=== PATIENT | female | born 2000 | race Two or more races ===

== ENCOUNTER 2024-06-29 14:51 | Emergency (ER) | payer MEDICAID, SELFPAY ==
[2024-06-29 15:07] VITALS: BP 132/81; PULSE 77; RESP 19; TEMP 37.3; O2SAT 98; BMI 47.8
--- NOTE | 2024-06-29 15:20 | XR_ITS ---
Examination: Pelvic ultrasound, transabdominal, complete Technique: Transabdominal ultrasound of the pelvis performed using grayscale imaging Date and time of exam: June 29, 2024 1621 hrs. Indications: Pelvic pain and vaginal bleeding beginning 2 months ago Findings: Uterus 7.9 x 3.2 x 4.3 cm anteverted Endometrial stripe 1.3 cm Right ovary 3.4 x 2.1 x 2.7 cm arterial flow Left ovary 2.9 x 2.5 x 3.4 cm arterial flow Impression: Negative examination
--- NOTE | 2024-06-29 15:20 | PD.EDRME ---
Rapid Medical Screening Exam RME Arrival date/time: 06/29/24 14:51 Chief Complaint: Vaginal Bleeding Time Seen by Provider: 06/29/24 14:56 Vital signs: Vital Signs Temperature 99.1 F 06/29/24 15:07 Pulse Rate 77 06/29/24 15:07 Respiratory Rate 19 06/29/24 15:07 Blood Pressure 132/81 H 06/29/24 15:07 Pulse Oximetry (%) 98 06/29/24 15:07 Oxygen Delivery Method Room Air 06/29/24 15:07 RME Narrative: Vaginal bleeding x 2 months
[2024-06-29 15:47] LABS: Basophils # (Auto) 0.1 Thou/mm3 (0.0-0.2); Basophils % (Auto) 1 % (0-2.5); Eosinophils # (Auto) 0.2 Thou/mm3 (0.0-0.5); Eosinophils % (Auto) 2 % (0-10); Hematocrit 39.4 % (36.0-46.0); Hemoglobin 13.6 g/dL (12.0-16.0); Immature Granulocytes % (Auto) 1 % (0-0); Immature Granulocytes Auto 0.04 Thou/mm3 (0.00-0.00); Lymphocytes # (Auto) 3.1 Thou/mm3 (1.0-4.8); Lymphocytes % (Auto) 38 % (10-50); Mean Corpuscular HGB Conc 34.5 g/dl (31.0-37.0); Mean Corpuscular Volume 87 fL (80-100); Monocytes # (Auto) 0.5 Thou/mm3 (0.0-0.8); Monocytes % (Auto) 6 % (0-12); Neutrophils # (Auto) 4.3 Thou/mm3 (1.8-7.7); Neutrophils % (Auto) 53 % (37-80); Nucleated Red Blood Cell % 0 /100 WBC (0); Platelet Count 282 Thou/mm3 (140-440); RDW Standard Deviation 39.5 fL (36.4-46.3); Red Blood Count 4.53 Miln/mm3 (4.00-5.20); White Blood Count 8.2 Thou/mm3 (3.6-11.0)
[2024-06-29 16:05] LABS: Alanine Aminotransferase 74 U/L (10-49); Albumin, Serum 5.1 gm/dL (3.5-5.0); Albumin/Globulin Ratio 1.8 (1.2-2.2); Alkaline Phosphatase 114 U/L (46-116); Anion Gap 5 (7-16); Aspartate Amino Transferase 40 U/L (0-34); BUN/Creatinine Ratio 18 Ratio (12-20); Bilirubin,Total 0.4 mg/dL (0.3-1.2); Blood Urea Nitrogen 14 mg/dL (9-23); Calcium 9.6 mg/dL (8.3-10.6); Calcium (Corrected) 9.6 mg/dL (8.5-10.1); Chloride 105 mMol/L (98-107); Creatinine (Component) 0.8 mg/dL (0.6-1.3); Estimated Creatinine Clearance 113.1 mL/min (>60); Globulin 2.8 gm/dL (2.3-3.5); Glucose 96 mg/dL (74-106); Osmolality,Calculated 274 (275-295); Potassium 3.7 mMol/L (3.4-5.1); Sodium 137 mMol/L (136-145); Total Protein 7.9 gm/dL (5.7-8.2); eGFR > 60 See Note
[2024-06-29 16:09] LABS: HCG,Qualitative Serum Negative
[2024-06-29 16:49] LABS: Collection Type, Urine Clean Catch
[2024-06-29 17:20] LABS: Bacteria,Urine 1+; Bilirubin,Urine Negative (Negative); Blood,Urine 3+ (Negative); Glucose, Urine Negative (Negative); Ketones,Urine Negative (Negative); Leukocyte Esterase,Urine Negative (Negative); Nitrite,Urine Negative (Negative); PH,Urine 6.5 (5.0-7.0); Protein,Urine Trace (Neg - Trace); RBC,Urine 1803 /hpf (0-3); Specific Gravity,Urine 1.019 (1.001-1.035); Squamous Epithelial Cell,Urine 5 /hpf (0-5); Urobilinogen,Urine Negative mg/dL (0.0-1.0); WBC,Urine 2 /hpf (0-5)
[2024-06-29 17:23] LABS: Clarity,Urine Cloudy (Clear/Hazy); Color,Urine Lt Yellow (Lt Yel-Yel)
--- NOTE | 2024-06-29 19:28 | EDNOTE_ITS ---
<Statement entered by Dena Mcmahon MD - 06/30/24 19:38> As co-signing physician, I was present and available for consult prn. I concur with the plan and care as documented by the midlevel provider. ED OB Contraction Preg RMI/HPI General Chief complaint: Vaginal Bleeding Stated complaint: vaginal bleeding x 2 months Time Seen by Provider: 06/29/24 14:56 Arrival date/time: 06/29/24 14:51 RME / HPI RME / HPI Narrative: 23-year-old female patient came in for evaluation regarding vaginal bleeding. Patient's been having vaginal bleeding, for the last 2 months, according to her was heavy, changing at least 3-4 pads per day. Patient denies any dizziness denies any other complaints. Patient was seen by her PCP and awaiting to be referred to [facility]. Patient never been before. Denies any dysuria denies any abdominal pain denies any pelvic pain Related Data Previous Rx's ?Medication ?Instructions ?Recorded acetaminophen 300 mg-codeine 30 mg 1 tab PO Q6H PRN pain #20 tabs 04/17/18 tablet (Tylenol-Codeine #3) penicillin V potassium 500 mg 500 mg PO QID #30 tabs 04/17/18 tablet acetaminophen 500 mg tablet 500 mg PO Q6H PRN pain #20 tabs 05/24/19 hydrocodone 5 mg-acetaminophen 325 1 tab PO Q6H PRN pain #20 tabs 05/24/19 mg tablet ([place]) ibuprofen 600 mg tablet 600 mg PO Q6H deny #20 tabs 05/24/19 medroxyprogesterone 10 mg tablet 10 mg PO QDAY #10 tabs 06/29/24 (Provera) Allergies Allergy/AdvReac Type Severity Reaction Status Date / Time No Known Allergies Allergy Verified 06/29/24 14:51 Review of Systems Review of Systems Narrative Review of Systems: Review of system reviewed and within normal limits except mentioned in HPI ED Exam Narrative Physical exam: VITAL SIGNS: Reviewed. GENERAL APPEARANCE: Alert and interactive, follows commands, no acute distress, HEAD AND FACE: Non-traumatic. ENT: PERRL, pink conjunctivitis, eyelid no trauma, Mucous membrane moist. NECK: Supple, nontender, no nuchal rigidity. CHEST: No tenderness, no crepitus, no paradoxical movement, no retractions. LUNGS: Clear, well ventilated, symmetric, no rales, no wheezing, no ronchi, no stridor, good breath sounds bilaterally. HEART: Regular rate, regular rhythm, no murmur, no gallops. ABDOMEN: Soft, positive bowel sounds, nondistended, no guarding, nontender, no rebound, no masses, RECTAL: Deferred. GENITAL: Deferred. NEUROLOGICAL: Gross motor function intact sensory function intact, Appropriate for age. MUSCULOSKELETAL: low back nontender, full range of motion. EXTREMITIES: Nontender, full range of motion. SKIN: Color pink, dry, no rash, no lacerations, no abrasions, no contusions. LYMPHATICS: Deferred. Course Quality Measures none Orders Category Date Time Status US pelvic complete Stat Exams 06/29/24 15:20 Completed CBC Stat Lab 06/29/24 15:33 Completed CMP [Comprehensive Metabolic Panel] Stat Lab 06/29/24 15:33 Completed HCG,Qualitative Serum Stat Lab 06/29/24 15:33 Completed UA [Urinalysis] Stat Lab 06/29/24 16:45 Completed Vital Signs Vital signs: Vital Signs Temperature 99.1 F 06/29/24 15:07 Pulse Rate 77 06/29/24 15:07 Respiratory Rate 19 06/29/24 15:07 Blood Pressure 132/81 H 06/29/24 15:07 Pulse Oximetry (%) 98 06/29/24 15:07 Oxygen Delivery Method Room Air 06/29/24 15:07 Vaginal Bleeding MDM Narrative MDM Narrative: Patient's workup all came back unremarkable. Patient is not . There is no sign of anemia also noted. Patient was sent home on Provera. Patient data External records reviewed:: None Clinical information provided by:: patient Social determinants that could affect healthcare access:: none Patient has the following chronic illnesses:: None How is presenting disease/condition affected by chronic disease/condition?: no chronic disease Evaluation data The following diagnostics were reviewed and interpreted by me:: lab results Lab and/or radiology exams considered but not ordered:: None Interpretation Summary: Patient's workup today all came back normal patient is there is no sign of anemia on the CBC. Ultrasound of the pelvis showed no acute pathology Medications / Prescriptions Medications or Prescriptions considered but not ordered:: None Medication administrations:: None Consultations Consultation(s) initiated? (list below): No Diagnosis Vaginal Bleeding Differential Diagnosis: threatened , dysfunctional uterine bleeding and vaginal bleeding Most likely diagnosis given after review of the tests above:: Menometrorrhagia, dysfunctional uterine bleeding Admission Indicated Admission indicated?: not indicated Admission Request Was there a request for admission?: No Disposition Plan Disposition Plan: Discharge Discharge Attestation Discharge Attestation: The patient and all family members were given an opportunity to ask questions and understood the discharge instructions. Discharge instructions specifically effects, indications for sooner follow up or return to the emergency department, and the expected course of current diagnosis. Patient condition: Stable Discharge Plan Plan Patient Disposition: HOME (Self Care) Disposition Comment: Stable Prescriptions/Referrals Prescriptions/Med Rec: New medroxyprogesterone [Provera] 10 mg tablet 10 mg PO QDAY Qty: 10 0RF No Action penicillin V potassium 500 mg tablet 500 mg PO QID Qty: 30 0RF acetaminophen-codeine [Tylenol-Codeine #3] 300-30 mg tablet 1 tab PO Q6H PRN (Reason: pain) Qty: 20 0RF hydrocodone-acetaminophen [[place]] 5-325 mg tablet 1 tab PO Q6H MDD 1 tab every 6 hrs PRN (Reason: pain) Qty: 20 0RF ibuprofen 600 mg tablet 600 mg PO Q6H Qty: 20 0RF acetaminophen 500 mg tablet 500 mg PO Q6H PRN (Reason: pain) Qty: 20 0RF Referrals: Rivka Galan CNM [Primary Care Provider] - In 1 week Problem List Clinical Impression: Dysfunctional uterine bleeding, Menometrorrhagia Patient/Caregiver Discharge Instructions Discharge Activity: activity as tolerated Education Materials: ED Heavy Menstrual Bleeding Additional Instructions: Thank you for the opportunity for serving you today. You are stable for discharged . You are advised to: Follow-up with your PCP in 1 to 2 days Return to ED for worsening of symptoms Increase oral fluids Take medication as prescribed Print Language: Palauan Stand Alone Forms: Annette Award Info., Patient Portal Info Letter PA/TG Supervising Physician DOMENICO/TG Supervising Physician: MD Lisandro
== END 2024-06-29 19:31 | disposition home or self-care (01) ==
PROVIDERS: Physician Assistant; Emergency Provider Emergency Medicine; PCP Advanced Practice Midwife
DX: N93.8 Other specified abnormal uterine and vaginal bleeding (principal); N92.1 Excessive and frequent menstruation with irregular cycle
CPT/HCPCS: 36415; 76856; 80053; 81001; 84703; 85025; 99284

== ENCOUNTER 2024-11-17 08:24 | Inpatient (IN) | payer MEDICAID, SELFPAY ==
[2024-11-17] VITALS (10 sets, daily range): BP systolic 108–141; BP diastolic 58–86; PULSE 70–98; RESP 18–20; TEMP 36.8–37.8; O2SAT 94–100; BMI 48.0; BMI 50.1; BMI 48.7
--- NOTE | 2024-11-17 08:40 | PD.EDRME ---
Rapid Medical Screening Exam RME Arrival date/time: 11/17/24 08:24 This is a 24-year-old female that comes in with complaints of lower abdominal pain diffusely. Patient states that started yesterday. Patient denies any nausea vomiting. Patient states that she felt like her temperature was up but did not take her temperature last night. Patient denies any urinary symptoms. Patient denies past medical history. I have greeted and performed a focused initial assessment of this patient. Initial appropriate labs ordered at this time. A comprehensive ED assessment and evaluation of the patient and analysis of all test and completion of medical decision making process will be conducted by additional ED provider. Chief Complaint: Abdominal Pain Time Seen by Provider: 11/17/24 08:27 Vital signs: Vital Signs Temperature 98.3 F 11/17/24 08:29 Pulse Rate 76 11/17/24 08:29 Respiratory Rate 19 11/17/24 08:29 Blood Pressure 141/86 H 11/17/24 08:29 Pulse Oximetry (%) 97 11/17/24 08:29 Oxygen Delivery Method Room Air 11/17/24 08:29
[2024-11-17] MEDS: ACETAMINOPHEN 500 MG TABLET 1000 MG PO ×2 (08:55→15:09)
[2024-11-17 09:31] LABS: Basophils % (Auto) 0 % (0-2.5); Eosinophils # (Auto) 0.1 Thou/mm3 (0.0-0.5); Eosinophils % (Auto) 1 % (0-10); Hematocrit 38.2 % (36.0-46.0); Hemoglobin 12.7 g/dL (12.0-16.0); Immature Granulocytes % (Auto) 0 % (0-0); Immature Granulocytes Auto 0.05 Thou/mm3 (0.00-0.00); Lymphocytes # (Auto) 2.1 Thou/mm3 (1.0-4.8); Lymphocytes % (Auto) 16 % (10-50); Mean Corpuscular HGB Conc 33.2 g/dl (31.0-37.0); Mean Corpuscular Hemoglobin 27.9 pg (25.0-35.0); Mean Corpuscular Volume 84 fL (80-100); Monocytes # (Auto) 0.8 Thou/mm3 (0.0-0.8); Monocytes % (Auto) 6 % (0-12); Neutrophils # (Auto) 10.3 Thou/mm3 (1.8-7.7); Neutrophils % (Auto) 77 % (37-80); Nucleated Red Blood Cell % 0 /100 WBC (0); Platelet Count 235 Thou/mm3 (140-440); RDW Standard Deviation 46.7 fL (36.4-46.3); Red Blood Count 4.56 Miln/mm3 (4.00-5.20); White Blood Count 13.3 Thou/mm3 (3.6-11.0)
[2024-11-17 09:46] LABS: Alanine Aminotransferase 28 U/L (10-49); Albumin, Serum 4.3 gm/dL (3.5-5.0); Albumin/Globulin Ratio 1.5 (1.2-2.2); Alkaline Phosphatase 117 U/L (46-116); Anion Gap 8 (7-16); Aspartate Amino Transferase 17 U/L (0-34); BUN/Creatinine Ratio 17 Ratio (12-20); Bilirubin,Total 0.5 mg/dL (0.3-1.2); Blood Urea Nitrogen 10 mg/dL (9-23); Calcium 8.6 mg/dL (8.3-10.6); Calcium (Corrected) 8.6 mg/dL (8.5-10.1); Carbon Dioxide 26.3 mMol/L (20.0-31.0); Chloride 107 mMol/L (98-107); Creatinine (Component) 0.6 mg/dL (0.6-1.3); Estimated Creatinine Clearance 147.5 mL/min (>60); Globulin 2.8 gm/dL (2.3-3.5); Glucose 120 mg/dL (74-106); Lipase 33 U/L (12-53); Osmolality,Calculated 281 (275-295); Sodium 141 mMol/L (136-145); Total Protein 7.1 gm/dL (5.7-8.2); eGFR > 60 See Note
[2024-11-17 10:01] LABS: HCG,Qualitative Serum Negative
[2024-11-17 10:32] LABS: HCG Qualitative,Urine Negative
--- NOTE | 2024-11-17 11:29 | XR_ITS ---
Examination: CT abdomen with intravenous contrast CT pelvis with intravenous contrast 2-D coronal reconstructions 2-D sagittal reconstructions Date and time of exam:November 17, 2024, 1319 hours Comparison November 22, 2017 INDICATIONS: Left lower abdominal pain with constipation beginning 3 days ago. CTDI: vol (mGy) 18.5 DLP: (mGycm) 1027 Technique: Multiple axial sections of the abdomen and pelvis have been obtained. 64 slice high-resolution scanner used. 3 mm axial sections have been obtained, post intravenous injection 60 cc [id number] 2-D sagittal, coronal reconstructions obtained. Low dose protocols were performed. One or more of the following dose reduction techniques were used; automated exposure control, adjustment of the mA and/or KV according to patient size, use of iterative reconstruction technique. Findings: Diffuse fatty infiltration throughout the liver, suspicious for tiny gallstones Spleen not enlarged No pancreatic or adrenal mass No renal or ureteral calculi, no hydronephrosis No periappendiceal definite inflammatory change No bowel obstruction Acute sigmoid diverticulitis, axial image 191, suspicious for early 33 mm peridiverticular abscess axial image 198 No pelvic mass Bilateral intact IMPRESSION: Acute sigmoid diverticulitis Suspicious for early 33 mm peridiverticular abscess
--- NOTE | 2024-11-17 11:30 | EDNOTE_ITS ---
<Statement entered by Dena Mcmahon MD - 11/18/24 04:25> As co-signing physician, I was present and available for consult prn. I concur with the plan and care as documented by the midlevel provider. ED Abdominal Pain RME/HPI General Chief Complaint: Abdominal Pain Stated complaint: ABD PAIN FOR 3 DAYS Time seen by provider: 11/17/24 08:27 Arrival date/time: 11/17/24 08:24 RME / HPI RME / HPI narrative: 24-year-old female that comes in with complaints of lower abdominal pain diffusely. Patient states that started yesterday. Patient denies any nausea vomiting. Patient states that she felt like her temperature was up but did not take her temperature last night. Patient denies any urinary symptoms. Patient denies past medical history. Patient denies any abdominal surgery. Her last bowel movement this morning Related Data Previous Rx's ?Medication ?Instructions ?Recorded acetaminophen 300 mg-codeine 30 mg 1 tab PO Q6H PRN pa in #20 tabs 04/17/18 tablet (Tylenol-Codeine #3) penicillin V potassium 500 mg 500 mg PO QID #30 tabs 1 tablet acetaminophen 500 mg tablet 500 mg PO Q6H PRN pain #20 tabs 05/24/19 hydrocodone 5 mg-acetaminophen 325 1 tab PO Q6H PRN pa in #20 tabs 05/24/19 mg tablet ([place]) ibuprofen 600 mg tablet 600 mg PO Q6H deny #20 tabs 1 07/24/18 medroxyprogesterone 10 mg tablet 10 mg PO QDAY #10 tab s 06/29/24 (Provera) Allergies Allergy/AdvReac Type Severity Reaction Status Date / Time No Known Allergies Allergy Verified 11/17/24 08:26 Review of Systems Review of Systems Narrative Review of Systems: Review of system reviewed and within normal limits except mentioned in HPI ED Exam Narrative Physical exam: VITAL SIGNS: Reviewed. GENERAL APPEARANCE: Alert and interactive, follows commands, no acute distress, HEAD AND FACE: Non-traumatic. ENT: PERRL, pink conjunctivitis, eyelid no trauma, Mucous membrane moist. NECK: Supple, nontender, no nuchal rigidity. CHEST: No tenderness, no crepitus, no paradoxical movement, no retractions. LUNGS: Clear, well ventilated, symmetric, no rales, no wheezing, no ronchi, no stridor, good breath sounds bilaterally. HEART: Regular rate, regular rhythm, no murmur, no gallops. ABDOMEN: Soft, positive bowel sounds, nondistended, no guarding, left lower quadrant tenderness, no rebound, no masses, RECTAL: Deferred. GENITAL: Deferred. NEUROLOGICAL: Gross motor function intact sensory function intact, Appropriate for age. MUSCULOSKELETAL: low back nontender, full range of motion. EXTREMITIES: Nontender, full range of motion. SKIN: Color pink, dry, no rash, no lacerations, no abrasions, no contusions. LYMPHATICS: Deferred. Course Quality Measures none Orders Category Date Time Status COVID-19 Screening Questionnaire NOW Care 11/17/24 15:[address] Screening NOW Care 11/17/24 11:29 Active Decision to Admit X1 Care 11/17/24 15:[address] abdomen pelvis w con Stat Exams 11/17/24 11:29 Completed Blood Culture (Lab) Stat Lab 11/17/24 17:13 Received CBC Stat Lab 11/17/24 09:21 Completed Comprehensive Metabolic Panel Stat Lab 11/17/24 09:21 Completed HCG Qualitative,Urine Stat Lab 11/17/24 10:15 Completed HCG,Qualitative Serum Stat Lab 11/17/24 09:21 Completed Lipase Stat Lab 11/17/24 09:21 Completed UA [Urinalysis] Routine Lab 11/17/24 15:47 Ordered Acetaminophen Tab [Tylenol ES Tab] Med 11/17/24 08:41 Discontinued 1,000 mg PO X1 ONE Acetaminophen Tab [Tylenol ES Tab] Med 11/17/24 14:18 Discontinued 1,000 mg PO X1 ONE CIPROFLOXACIN/D5w 400 MG IVPB [Cipro Ivpb] Med 11/17/24 15:05 Discontinued 400 mg in 200 ml IV X1 Fluconazole [Diflucan] Med 11/17/24 15:21 Discontinued 150 mg PO X1 ONE HYDROmorphone INJ [Dilaudid Inj] Med 11/17/24 16:10 Discontinued 0.5 mg IVP X1 ONE Ketorolac Inj [Toradol Inj] Med 11/17/24 11:29 Discontinued 30 mg IVP X1 ONE Morphine Inj Med 11/17/24 14:03 Discontinued 4 mg IVP X1 ONE Ondansetron Inj [Zofran Inj] Med 11/17/24 14:03 Discontinued 4 mg IV X1 ONE metroNIDAZOLE/NS 500 MG IVPB [Flagyl 500 mg IV] Med 11/17/24 15:05 Discontinued 500 mg in 100 ml IV X1 Vital Signs Vital signs: Vital Signs Temperature 98.3 F 11/17/24 08:29 Pulse Rate 76 11/17/24 08:29 Respiratory Rate 19 11/17/24 08:29 Blood Pressure 141/86 H 11/17/24 08:29 Pulse Oximetry (%) 97 11/17/24 08:29 Oxygen Delivery Method Room Air 11/17/24 08:29 Abdominal Pain [facility] Narrative [facility] Narrative:: 24-year-old female that comes in with complaints of lower abdominal pain diffusely. Patient states that started yesterday. Patient denies any nausea vomiting. Patient states that she felt like her temperature was up but did not take her temperature last night. Patient denies any urinary symptoms. Patient denies past medical history. Patient denies any abdominal surgery. Her last bowel movement this morning, nonbloody normal stool. CBC showed 13.3 leukocytosis. There is of the labs unremarkable. CT scan of the abdomen and pelvis showed Acute sigmoid diverticulitis Suspicious for early 33 mm peridiverticular abscess Patient received IV Flagyl and Cipro. Patient is to be admitted for acute sigmoid diverticulitis with peridiverticular abscess Patient data External records reviewed:: None Clinical information provided by:: patient Social determinants that could affect healthcare access:: none Patient has the following chronic illnesses:: None How is presenting disease/condition affected by chronic disease/condition?: no chronic disease Evaluation data The following diagnostics were reviewed and interpreted by me:: lab results and radiology exam(s) Lab and/or radiology exams considered but not ordered:: None Interpretation Summary: See results in MDM Medications / Prescriptions Medications or Prescriptions considered but not ordered:: None Medication administrations:: Medication Administration History Acetaminophen (Acetaminophen 325 Mg Tablet) 650 mg PO Q6H PRN PRN Reason: Fever >100 or pain 1-3 Stop: 12/17/24 19:41 Metronidazole (Flagyl 500 Mg Iv) 500 mg in 100 mls @ 200 mls/hr IV Q8HR [facility] Stop: 11/25/24 00:00 Ciprofloxacin/Dextrose (Cipro Ivpb) 400 mg in 200 mls @ 200 mls/hr IV Q12HR [facility] Stop: 11/25/24 00:46 Lactated Ringer's (Lactated Ringers) 1,000 mls @ 100 mls/hr IV .Q10H [facility] Stop: 12/17/24 19:59 Last Admin: 11/17/24 20:04 Dose: 100 mls/hr Documented By: GD Morphine Sulfate (Morphine Sulf Inj 10 Mg/Ml Vial) 2 mg IVP Q3H PRN PRN Reason: PAIN SCALE 7-10 (Severe Stop: 11/22/24 19:47 Last Admin: 11/17/24 20:13 Dose: 2 mg Documented By: GD Ondansetron HCl (Ondansetron Inj 2 Mg/Ml Inj 2 Ml) 4 mg IV Q6H PRN; Protocol PRN Reason: NAUSEA OR VOMITING Stop: 12/17/24 19:41 Oxycodone/Acetaminophen (Oxycodone/Apap 5/325 Tablet) 1 tab PO Q6H PRN PRN Reason: PAIN SCALE 4-6 (Moderate Stop: 11/22/24 19:47 Pantoprazole Sodium (Pantoprazole Inj 40 Mg Vial) 40 mg IVP QDAY [facility] Stop: 12/18/24 08:59 Discontinued Medications Acetaminophen (Acetaminophen 500 Mg Tablet) 1,000 mg PO X1 ONE Stop: 11/17/24 08:42 Last Admin: 11/17/24 08:55 Dose: 1,000 mg Documented By: SM Acetaminophen (Acetaminophen 500 Mg Tablet) 1,000 mg PO X1 ONE Stop: 11/17/24 14:19 Last Admin: 11/17/24 15:09 Dose: 1,000 mg Documented By: RD Acetaminophen (Acetaminophen 325 Mg Tablet) 650 mg PO Q6H PRN PRN Reason: Fever >101.5 Stop: 12/17/24 19:47 Acetaminophen (Acetaminophen 325 Mg Tablet) 650 mg PO Q6H PRN PRN Reason: PAIN SCALE 1-3 (mild Stop: 12/17/24 19:47 Hydrocodone Bitart/Acetaminophen (Hydrocodone/Apap 5/325 Tablet) 1 tab PO Q6H PRN PRN Reason: PAIN SCALE 4-6 (Moderate Stop: 11/22/24 19:41 Enoxaparin Sodium (Enoxaparin Sod Inj 40 Mg/0.4 Ml Syringe) 40 mg SC QDAY [facility] Stop: 12/02/24 08:59 Fluconazole (Fluconazole 150 Mg Tablet) 150 mg PO X1 ONE Stop: 11/17/24 15:22 Last Admin: 11/17/24 15:54 Dose: 150 mg Documented By: SIVAN Hydromorphone HCl (Hydromorphone Inj 2 Mg/Ml Vial) 0.5 mg IVP X1 ONE Stop: 11/17/24 16:11 Last Admin: 11/17/24 16:16 Dose: 0.5 mg Documented By: RODOLFO Metronidazole (Flagyl 500 Mg Iv) 500 mg in 100 mls @ 100 mls/hr IV X1 ONE Stop: 11/17/24 16:04 Last Admin: 11/17/24 18:36 Dose: 100 mls/hr Documented By: RODOLFO Ciprofloxacin/Dextrose (Cipro Ivpb) 400 mg in 200 mls @ 200 mls/hr IV X1 ONE Stop: 11/17/24 16:04 Last Infusion: 11/17/24 17:37 Dose: Infused Documented By: Admin: 11/17/24 15:49 Dose: 200 mls/hr Documented By: SIVAN Sodium Chloride (Ns) 1,000 mls @ 75 mls/hr IV .[id number] Stop: 12/17/24 19:44 Ketorolac Tromethamine (Ketorolac Inj 30 Mg/Ml Vial) 30 mg IVP X1 ONE Stop: 11/17/24 11:30 Last Admin: 11/17/24 11:50 Dose: 30 mg Documented By: JUJU Morphine Sulfate (Morphine Sulf Inj 10 Mg/Ml Vial) 4 mg IVP X1 ONE Stop: 11/17/24 14:04 Last Admin: 11/17/24 14:11 Dose: 4 mg Documented By: RODOLFO Morphine Sulfate (Morphine Sulf Inj 10 Mg/Ml Vial) 4 mg IVP X1 ONE Stop: 11/17/24 18:26 Last Admin: 11/17/24 18:36 Dose: 4 mg Documented By: RODOLFO Morphine Sulfate (Morphine Sulf Inj 10 Mg/Ml Vial) 2 mg IVP Q8H PRN PRN Reason: PAIN SCALE 7-10 (Severe Stop: 11/22/24 19:41 Ondansetron HCl (Ondansetron Inj 2 Mg/Ml Inj 2 Ml) 4 mg IV X1 ONE; Protocol Stop: 11/17/24 14:04 Last Admin: 11/17/24 14:10 Dose: 4 mg Documented By: RODOLFO Ondansetron HCl (Ondansetron Inj 2 Mg/Ml Inj 2 Ml) 4 mg IV Q6H PRN; Protocol PRN Reason: NAUSEA OR VOMITING Stop: 12/17/24 19:47 IV Cipro IV Flagyl IV fluids morphine and Zofran Consultations Consultation(s) initiated? (list below): No Diagnosis Differential diagnosis abdominal pain: abdominal pain and diverticulitis Most likely diagnosis given after review of the tests above:: Acute diverticulitis with peridiverticular abscess Admission Indicated Admission indicated?: not indicated Admission Request Was there a request for admission?: No Disposition Plan Disposition Plan: Admit Discharge Plan Plan Patient Disposition: Admit Acute Care w/in Hospital Discharge Disposition comment: Stable Problem List Clinical Impression: Acute diverticulitis
[2024-11-17] MEDS: KETOROLAC INJ 30 MG/ML VIAL IVP (11:50)
--- NOTE | 2024-11-17 11:55 | PC.NURSE ---
Patient from [facility] and taken to rm 18 with c/o chayito. lower abd. pain since yesterday, denies n/v, patient states she feels constipated x 2 days and c/o pain in recturm when she has a bm, patient denies blood in her stool, ivl started and ct check off list completed for ct exam, call light within reach.
--- NOTE | 2024-11-17 14:02 | PC.NURSE ---
RECEIVED VERBAL ORDER FROM ER PROVIDER FOR 4MG MORPHINE IV AND 4MG ZOFRAN IV
[2024-11-17] MEDS: ONDANSETRON INJ 2 MG/ML INJ 2 ML 4 MG IV (14:10)
[2024-11-17] MEDS: MORPHINE SULF INJ 10 MG/ML VIAL 4 MG IVP ×2 (14:11→18:36)
[2024-11-17] MEDS: CIPROFLOXACIN/D5w 400 MG IVPB 400 MG/200 ML BAG 200 MG IV (15:49)
[2024-11-17] MEDS: FLUCONAZOLE 150 MG TABLET PO (15:54)
--- NOTE | 2024-11-17 16:04 | PC.NURSE ---
Patient states pain 9/10. Informed ER provider and received verbal order for 0.5 mg Hydromorphone
[2024-11-17] MEDS: HYDROmorphone INJ 2 MG/ML VIAL 0.5 MG IVP (16:16)
[2024-11-17] MEDS: metroNIDAZOLE/NS 500 MG IVPB 500 MG/100 ML BAG 100 MG IV (18:36)
--- NOTE | 2024-11-17 19:19 | PC.NURSE ---
Report called and given to Fang DELGADO in Med Surg.
--- NOTE | 2024-11-17 19:49 | ESHP_ITS ---
<Statement entered by Susan Abernathy MD - 11/18/24 06:45> Patient was seen and examined at bedside. I agree on most of the assessment and plan of this patient. - Patient's plan and care discussed with my attending, Dr. Eladio Abernathy MD Internal Medicine PGY-2 Documentation for date of: 11/17/24 HPI History of Present Illness History of present illness: Brian is a 24 y/o female with PMHx morbid obesity, dysmenorrhea comes in for an evaluation of bilateral lower quadrant pain, onset 3 days ago, minimally relieved with ibuprofen and Tylenol. Patient reports that 3 days ago upon waking up and going to work she had felt bilateral lower quadrant pain with associated nausea, however no vomiting. She reports that at the time it was a 10 out of 10 however she still went to work. She said that over the next couple days the pain had worsened and she decided to come to the ER to get further evaluated. She denies any chest pain, shortness of breath or headache. She says that sometimes she experience constipation and she takes iron twice a day. She also says that she has heavy periods as well. She denies any recent travel. She says she is not at this time. Denies any changes to her diet. She said her last bowel movement was this morning. She says she has been nauseous and has not ate since the morning. She has not seen a GI doctor before had a colonoscopy. No other complaints at this time. ED course: Patient arrived to the ED with a temperature of 98.3, heart rate 76, respiratory of 19, blood pressure of 141/86, saturating 97% on room air. Patient was worked up was found to have a sodium of 141, potassium 4, BUN/creatinine of 10 and 0.6 respectively, white count 13.3, hemoglobin 12.7, platelets 235, T. bili 0.5, AST ALT 17 and 28 respectively, ALP 117. Urine hCG was negative. Abdomen and pelvis CT was performed and shows sigmoid diverticulitis and early 33 mm peridiverticular abscess. Patient was given 2 g of Tylenol, 30 of Toradol, 4 of morphine, Zofran x 1, and was started on Cipro and Flagyl. Medicine was consulted and patient was made to the floors for further workup and management of diverticulitis PMHx: As above Surgeries: Denies having any surgeries Meds: Says she takes iron twice a day, recently started taking ibuprofen and Tylenol for her pain. Allergies: No known allergies Family Hx: Her family history is limited as she is unsure Social Hx: She says that she grew up in [place] but is not of [place] speaker of Russian (believes she is ). She moved to the [facility] when she was 14. She works as a field laborer in town. She also says that she goes to [place] starting in December works there for 4 months to pick [employer]. She denies any recent travel. She is to her and with no kids. No smoking, drinking or drug history. Review of Systems Review of Systems Narrative Review of Systems: Constitutional: No fever, chills, fatigue, weakness, weight loss HEENT: No eye pain, vision loss, ear pain, hearing loss, dysphagia, Cardiovascular: No chest pain, palpitations, edema, pain with walking Respiratory: No cough, shortness of breath, wheezing GI: Positive nausea, positive abdominal pain, denies any constipation, blood in stool, loss of appetite, heartburn Extremities: No presence of pitting edema MSK: No back pain, joint pain, joint swelling Neuro: No dizziness, numbness, weakness, headaches, seizures, tremors Psych: No anxiety, depression Exam Vital Signs Temp Pulse Resp BP Pulse Ox O2 Del Method 99.7 F 70 18 119/58 L 97 Room Air 11/17/24 18:29 11/17/24 18:29 11/17/24 18:29 11/17/24 18:29 11/17/24 18:29 11/17/24 18:29 Narrative Exam General: AAOx3, NAD, morbidly obese, pleasant female HEENT: Dry mucous membranes, conjunctiva clear, EOMI, PERRLA, Cardiovascular: S1, S2, radial pulses +2 bilat, RRR Pulmonary: CTAB bilat no cough, no wheezing GI: Some tenderness palpitation mainly in the left lower quadrant, no guarding, rigidity, rebound tenderness or distension Extremities: No presence of trace or pitting edema in lower extremities bilaterally, dorsalis pedis pulses +2 bilaterally Neuro: AAOx3, no focal motor or sensory deficits in the UE or LE bilat Psych: Good judgement, thought and behavior. Cooperative Results: Labs 11/18/24 06:03 11/18/24 06:03 Labs: Short CBC 11/17/24 Range/Units 09:21 WBC 13.3 H (3.6-11.0) Thou/mm3 Hgb 12.7 (12.0-16.0) g/dL Hct 38.2 (36.0-46.0) % Plt Count 235 (140-440) Thou/mm3 BMP 11/17/24 09:21 Sodium 141 Potassium 4.0 Chloride 107 Carbon Dioxide 26.3 BUN 10 Creatinine 0.6 Glucose 120 H Calcium 8.6 Liver Function 11/17/24 Range/Units 09:21 Total Bilirubin 0.5 (0.3-1.2) mg/dL AST 17 (0-34) U/L ALT 28 (10-49) U/L Alkaline Phosphatase 117 H (46-116) U/L Albumin 4.3 (3.5-5.0) gm/dL Quality Measures Quality Measures VTE prophylaxis (Lovenox) Medications Home Medications and Allergies Allergies Allergy/AdvReac Type Severity Reaction Status Date / Time No Known Allergies Allergy Verified 11/17/24 08:26 Visit Medications Acetaminophen (Acetaminophen 325 Mg Tablet) 650 mg PO Q6H PRN PRN Reason: Fever >100 or pain 1-3 Stop: 12/17/24 19:41 Hydrocodone Bitart/Acetaminophen (Hydrocodone/Apap 5/325 Tablet) 1 tab PO Q6H PRN PRN Reason: PAIN SCALE 4-6 (Moderate Stop: 11/22/24 19:41 Enoxaparin Sodium (Enoxaparin Sod Inj 40 Mg/0.4 Ml Syringe) 40 mg SC QDAY [facility] Stop: 12/02/24 08:59 Sodium Chloride (Ns) 1,000 mls @ 75 mls/hr IV .[id number] [facility] Stop: 12/17/24 19:44 Metronidazole (Flagyl 500 Mg Iv) 500 mg in 100 mls @ 200 mls/hr IV Q8HR LYUDMILA Stop: 11/25/24 00:00 Ciprofloxacin/Dextrose (Cipro Ivpb) 400 mg in 200 mls @ 200 mls/hr IV Q12HR LYUDMILA Stop: 11/25/24 00:46 Morphine Sulfate (Morphine Sulf Inj 10 Mg/Ml Vial) 2 mg IVP Q8H PRN PRN Reason: PAIN SCALE 7-10 (Severe Stop: 11/22/24 19:41 Ondansetron HCl (Ondansetron Inj 2 Mg/Ml Inj 2 Ml) 4 mg IV Q6H PRN; Protocol PRN Reason: NAUSEA OR VOMITING Stop: 12/17/24 19:41 Discontinued Medications Acetaminophen (Acetaminophen 500 Mg Tablet) 1,000 mg PO X1 ONE Stop: 11/17/24 08:42 Last Admin: 11/17/24 08:55 Dose: 1,000 mg Acetaminophen (Acetaminophen 500 Mg Tablet) 1,000 mg PO X1 ONE Stop: 11/17/24 14:19 Last Admin: 11/17/24 15:09 Dose: 1,000 mg Fluconazole (Fluconazole 150 Mg Tablet) 150 mg PO X1 ONE Stop: 11/17/24 15:22 Last Admin: 11/17/24 15:54 Dose: 150 mg Hydromorphone HCl (Hydromorphone Inj 2 Mg/Ml Vial) 0.5 mg IVP X1 ONE Stop: 11/17/24 16:11 Last Admin: 11/17/24 16:16 Dose: 0.5 mg Metronidazole (Flagyl 500 Mg Iv) 500 mg in 100 mls @ 100 mls/hr IV X1 ONE Stop: 11/17/24 16:04 Last Admin: 11/17/24 18:36 Dose: 100 mls/hr Ciprofloxacin/Dextrose (Cipro Ivpb) 400 mg in 200 mls @ 200 mls/hr IV X1 ONE Stop: 11/17/24 16:04 Last Infusion: 11/17/24 17:37 Dose: Infused Ketorolac Tromethamine (Ketorolac Inj 30 Mg/Ml Vial) 30 mg IVP X1 ONE Stop: 11/17/24 11:30 Last Admin: 11/17/24 11:50 Dose: 30 mg Morphine Sulfate (Morphine Sulf Inj 10 Mg/Ml Vial) 4 mg IVP X1 ONE Stop: 11/17/24 14:04 Last Admin: 11/17/24 14:11 Dose: 4 mg Morphine Sulfate (Morphine Sulf Inj 10 Mg/Ml Vial) 4 mg IVP X1 ONE Stop: 11/17/24 18:26 Last Admin: 11/17/24 18:36 Dose: 4 mg Ondansetron HCl (Ondansetron Inj 2 Mg/Ml Inj 2 Ml) 4 mg IV X1 ONE; Protocol Stop: 11/17/24 14:04 Last Admin: 11/17/24 14:10 Dose: 4 mg Assessment & Plan Plan Assessment Brian is a 24 y/o female with PMHx morbid obesity, dysmenorrhea who was admitted for acute diverticulitis with associated 33 mm peridiverticular abscess. #Acute diverticulitis #Peridiverticular abscess, 33 mm #Leukocytosis CT abdomen pelvis shows sigmoid diverticulitis with associated early 33 mm peridiverticular abscess Considering size of abscess which is 33 mm, we will hold on getting a surgical consult or even doing a percutaneous IR drainage as above 40 mm this can be a consideration We will see how patient improves with antibiotics and move forward from there Unsure if patient has component of diverticulosis, however will require further workup and imaging later On CBC she did have slight leukocytosis 13.3, also neutrophils appear to be elevated She is young considering getting diverticulitis Plan: ? Flagyl 500 mg IV every 8 hours ? Ciprofloxacin IV 500 mg every 12 hours ? Bowel rest with n.p.o. ? Antiemetics as needed ? Pain management including morphine 2 mg every 3 hours and Percocet every 6 hours ? Lactated Ringer's 100 cc/hour #Morbid obesity BMI of 48 Plan: ? Outpatient management considering GLP's and other weight loss medicines ? Cardiac stratification #Dysmenorrhea Plan: ? Outpatient follow-up ? Holding home Provera #Health Maintenance Disposition: MedSurg DVT prophylaxis: Lovenox GI prophylaxis: Protonix Diet: N.p.o. CODE STATUS: Full Patient seen and care discussed with my senior resident, Dr. Hendricks, and my attending physician, Dr. Josemanuel Pritchett, PGY-1 Attending Provider Attestation/Addendum I have examined the patient, reviewed labs and imaging findings, discussed the case with the resident(s), and reviewed entered orders. I agree with the plan of care as outlined in this note, with these additional summaries/recommendations: Patient seen at bedside. She reports she presented with abdominal pain. In the emergency department patient underwent CT of abdomen pelvis which showed acute sigmoid diverticulitis with suspicious early 33 mm peridiverticular abscess. Start IV antibiotics. Blood cultures taken. Continue pain management. Bowel rest. Leukocytosis present and continue to trend hematology panel daily. Patient is also noted to be morbidly obese and would benefit from outpatient weight loss program/weight loss medications. Repeat hematology and chemistry panel in AM. All questions answered to satisfaction. Please see residents note for additional details of management. Dr. Eladio MD
[2024-11-17] MEDS: RINGERS LACTATED 1000 ML 1,000 ML 100 ML IV (20:04)
[2024-11-17] MEDS: MORPHINE SULF INJ 10 MG/ML VIAL 2 MG IVP (20:13)
--- NOTE | 2024-11-17 22:14 | PC.NURSE ---
Patient c/o bleeding when she went to the restroom. Patient stated it is normal for her because she has irregular periods. Dr. Pritchett made aware and he said he will look into it.
[2024-11-18] VITALS (8 sets, daily range): BP systolic 102–146; BP diastolic 55–96; PULSE 74–102; RESP 15–24; TEMP 36.4–39.5; O2SAT 93–98
[2024-11-18] MEDS: metroNIDAZOLE/NS 500 MG IVPB 500 MG/100 ML BAG 200 MG IV ×4 (00:07→21:04)
[2024-11-18] MEDS: CIPROFLOXACIN/D5w 400 MG IVPB 400 MG/200 ML BAG 200 MG IV ×3 (00:12→21:05)
--- NOTE | 2024-11-18 00:37 | PC.NURSE ---
CAT SITTER called on pt due to elevated temp and WBC. labs, bolus, acetaminophen ordered. Sepsis alert called.
--- NOTE | 2024-11-18 00:39 | EVENTNT_ITS ---
<Statement entered by Luis Carlos Harding MD - 11/18/24 06:26> Patient seen and examined at bedside with resident. Agree with assessment and plan as dictated below. Luis Carlos Harding MD Documentation for date of: 11/18/24 Event Note Event Note: Rapid response called for the patient at about midnight, patient found to be tachycardic heart rate 102, febrile temperature 103.1, tachypneic respiratory rate 24. Patient admitted today management of diverticulitis, does have underlying peridiverticular abscess. Patient alert and oriented x 3 on examination, abdominal shows no rebound tenderness rigidity. Significant tenderness of lower abdomen noted on palpation. Patient started on IV antibiotics by primary team, will continue sepsis alert was called. lactate, Pro-Nicanor, blood cultures were ordered. Patient given IV Tylenol and IV fluids per sepsis protocol. Will follow patient's labs and continue to monitor patient. Case discussed with Attending Dr. Harding. Saulo Padgett PGY1 Disclaimer: This note was dictated by speech recognition. Minor errors in tra nscription may be present due to voice recognition software.
[2024-11-18] MEDS: SODIUM CHLORIDE 0.9% 3176 ML IV (00:46)
[2024-11-18] MEDS: ACETAMINOPHEN IVPB 1,000 MG/100 ML VIAL 250 MG IV (00:59)
[2024-11-18 01:19] LABS: Lactate (Lactic Acid) 1.2 mMol/L (0.4-2.0)
[2024-11-18 01:58] LABS: Procalcitonin 0.13 ng/ml (0.0-0.49)
[2024-11-18] MEDS: MORPHINE SULF INJ 10 MG/ML VIAL 2 MG IVP ×3 (04:40→13:03)
[2024-11-18] MEDS: oxyCODONE/APAP 5/325 TABLET 1 TAB PO (05:47)
[2024-11-18 07:06] LABS: Basophils % (Auto) 0 % (0-2.5); Eosinophils % (Auto) 0 % (0-10); Hematocrit 34.1 % (36.0-46.0); Hemoglobin 11.3 g/dL (12.0-16.0); Immature Granulocytes % (Auto) 0 % (0-0); Immature Granulocytes Auto 0.05 Thou/mm3 (0.00-0.00); Lymphocytes # (Auto) 2.2 Thou/mm3 (1.0-4.8); Lymphocytes % (Auto) 16 % (10-50); Mean Corpuscular HGB Conc 33.1 g/dl (31.0-37.0); Mean Corpuscular Hemoglobin 28.6 pg (25.0-35.0); Mean Corpuscular Volume 86 fL (80-100); Monocytes # (Auto) 0.9 Thou/mm3 (0.0-0.8); Monocytes % (Auto) 7 % (0-12); Neutrophils # (Auto) 10.3 Thou/mm3 (1.8-7.7); Neutrophils % (Auto) 76 % (37-80); Nucleated Red Blood Cell % 0 /100 WBC (0); Platelet Count 209 Thou/mm3 (140-440); RDW Standard Deviation 48.9 fL (36.4-46.3); Red Blood Count 3.95 Miln/mm3 (4.00-5.20); White Blood Count 13.5 Thou/mm3 (3.6-11.0)
[2024-11-18 07:07] LABS: INR 1.1 (0.9-1.3); Partial Thromboplastin Time 34.5 Seconds (22.0-36.0); Prothrombin Time 11.5 Seconds (9.0-12.2)
[2024-11-18 07:28] LABS: Alanine Aminotransferase 16 U/L (10-49); Albumin, Serum 3.6 gm/dL (3.5-5.0); Albumin/Globulin Ratio 1.4 (1.2-2.2); Alkaline Phosphatase 81 U/L (46-116); Anion Gap 11 (7-16); Aspartate Amino Transferase 12 U/L (0-34); BUN/Creatinine Ratio 12 Ratio (12-20); Blood Urea Nitrogen 6 mg/dL (9-23); Calcium 7.6 mg/dL (8.3-10.6); Calcium (Corrected) 7.9 mg/dL (8.5-10.1); Carbon Dioxide 23.6 mMol/L (20.0-31.0); Cardiac Risk Estimate 3.6 RATIO (3.7-5.6); Chloride 107 mMol/L (98-107); Cholesterol 118 mg/dL (132-200); Creatinine (Component) 0.5 mg/dL (0.6-1.3); Estimated Creatinine Clearance 181.6 mL/min (>60); Globulin 2.5 gm/dL (2.3-3.5); Glucose 99 mg/dL (74-106); HDL Cholesterol 33 mg/dL (40-60); LDL Cholesterol,Calculated 65 mg/dL (0-130); Magnesium 1.8 mg/dL (1.6-2.6); Osmolality,Calculated 280 (275-295); Phosphorous 2.9 mg/dL (2.4-5.1); Potassium 3.6 mMol/L (3.4-5.1); Sodium 142 mMol/L (136-145); Thyroid Stimulating Hormone 3.01 uIU/mL (0.55-4.78); Total Protein 6.1 gm/dL (5.7-8.2); Triglycerides 98 mg/dL (30-150); eGFR > 60 See Note
[2024-11-18 07:30] LABS: Glucose Estimated Average 105 mg/dL (80-131); Hemoglobin A1C 5.3 % Hgb (4.8-6.0)
[2024-11-18] MEDS: PANTOPRAZOLE INJ 40 MG VIAL IVP (08:15)
--- NOTE | 2024-11-18 10:13 | PC.SS ---
This is 24-year-old, life-partnered, female who presented to the ED for abdominal pain. Patient appeared alert and oriented to self, place and situation. Patient was pleasant. Patient reported that she resides at home with her life-partner and mother. Patient is independent with all ADLs, no DME use. Patient assigned her life-partner, Fransisco Nolan (phone: [phone]) as her medical decision maker. Patient's PCP is CN. When medically clear, patient will return home.
--- NOTE | 2024-11-18 11:07 | PD.RESPRO ---
Documentation for date of: 11/18/24 Subjective Subjective Interval history: Patient examined at bedside today. Overnight events included sepsis alert overnight, patient was febrile temperature 102, tachycardia and tachypneic. Blood cultures were ordered again. Lactate and Pro-Nicanor were ordered which ended up being unremarkable. She was also given fluids. Patient reports she is doing okay right now. She says that her pain is controlled with morphine. She says she feels about the same since she came here. She still feels some abdominal pain. She reports she is doing okay right now. She does not want to eat right now. No other complaints. Exam Vital Signs Temp Pulse Resp BP Pulse Ox O2 Del Method 97.5 F 74 16 102/61 94 L Room Air 11/18/24 07:58 11/18/24 07:58 11/18/24 07:58 11/18/24 07:58 11/18/24 07:58 11/18/24 04:00 Narrative Exam General: AAOx3, NAD, morbidly obese, pleasant female HEENT: Dry mucous membranes, conjunctiva clear, EOMI, PERRLA, Cardiovascular: S1, S2, radial pulses +2 bilat, RRR Pulmonary: CTAB bilat no cough, no wheezing GI: Some tenderness palpitation mainly in the left lower quadrant, no guarding, rigidity, rebound tenderness or distension Extremities: No presence of trace or pitting edema in lower extremities bilaterally, dorsalis pedis pulses +2 bilaterally Neuro: AAOx3, no focal motor or sensory deficits in the UE or LE bilat Psych: Good judgement, thought and behavior. Cooperative Objective Labs 11/19/24 05:15 11/19/24 05:15 Labs: Laboratory Results - last 24 hr 11/18/24 11/18/24 00:35 06:03 WBC 13.5 H RBC 3.95 L Hgb 11.3 L Hct 34.1 L MCV 86 MCH 28.6 MCHC 33.1 RDW Std Deviation 48.9 H Plt Count 209 Neut % (Auto) 76 Lymph % (Auto) 16 Preston % (Auto) 7 Eos % (Auto) 0 Baso % (Auto) 0 Neut # (Auto) 10.3 H Lymph # (Auto) 2.2 Preston # (Auto) 0.9 H Eos # (Auto) 0.0 Baso # (Auto) 0.0 Immature Gran # (Auto) 0.05 H Absolute Nucleated RBC 0.00 Immature Gran % 0 Nucleated RBC % 0 PT 11.5 INR 1.1 APTT 34.5 Sodium 142 Potassium 3.6 Chloride 107 Carbon Dioxide 23.6 Anion Gap 11 BUN 6 L Creatinine 0.5 L Estim Creat Clear Calc 181.6 eGFR > 60 BUN/Creatinine Ratio [address] Glu mg/dL 105 Hemoglobin A1c 5.3 Calculated Osmolality 280 Lactic Acid 1.2 Calcium 7.6 L Corrected Calcium 7.9 L Phosphorus 2.9 Magnesium 1.8 Total Bilirubin 1.0 D AST 12 ALT 16 Alkaline Phosphatase 81 D Total Protein 6.1 Albumin 3.6 D Globulin 2.5 Albumin/Globulin Ratio 1.4 Triglycerides 98 Cholesterol 118 L LDL Cholesterol, Calc 65 HDL Cholesterol 33 L Cholesterol/HDL Ratio 3.6 L Procalcitonin 0.13 TSH 3.01 Quality Measures Quality Measures none Assessment & Plan Assessment Current Active Medications: Generic Name Dose Route Start Last Admin Trade Name Freq PRN Reason Stop Dose Admin Acetaminophen 650 mg 11/17/24 19:42 Acetaminophen 325 Mg Tablet PO 12/17/24 19:41 Q6H PRN Fever >100 or pain 1-3 Metronidazole 500 mg in 100 mls @ 200 mls/hr 11/18/24 00:00 11/18/24 05:18 Flagyl 500 Mg Iv IV 11/25/24 00:00 200 mls/hr Q8HR LYUDMILA Administration Ciprofloxacin/Dextrose 400 mg in 200 mls @ 200 mls/hr 11/18/24 00:47 11/18/24 08:15 Cipro Ivpb IV 11/25/24 00:46 200 mls/hr Q12HR LYUDMILA Administration Lactated Ringer's 1,000 mls @ 100 mls/hr 11/17/24 20:00 11/17/24 20:04 Lactated Ringers IV 12/17/24 19:59 100 mls/hr .Q10H LYUDMILA Administration Morphine Sulfate 2 mg 11/17/24 19:48 11/18/24 08:27 Morphine Sulf Inj 10 Mg/Ml Vial IVP 11/22/24 19:47 2 mg Q3H PRN Administration PAIN SCALE 7-10 (Severe Ondansetron HCl 4 mg 11/17/24 19:42 Ondansetron Inj 2 Mg/Ml Inj 2 Ml IV 12/17/24 19:41 Q6H PRN NAUSEA OR VOMITING Protocol Oxycodone/Acetaminophen 1 tab 11/17/24 19:48 11/18/24 05:47 Oxycodone/Apap 5/325 Tablet PO 11/22/24 19:47 1 tab Q6H PRN Administration PAIN SCALE 4-6 (Moderate Pantoprazole Sodium 40 mg 11/18/24 09:00 11/18/24 08:15 Pantoprazole Inj 40 Mg Vial IVP 12/18/24 08:59 40 mg QDAY LYUDMILA Administration Plan Assessment Brian is a 24 y/o female with PMHx morbid obesity, dysmenorrhea who was admitted for acute diverticulitis with associated 33 mm peridiverticular abscess. #Acute diverticulitis #Peridiverticular abscess, 33 mm #SIRS 3/[address] abdomen pelvis shows sigmoid diverticulitis with associated early 33 mm peridiverticular abscess Considering size of abscess which is 33 mm, we will hold on getting a surgical consult or even doing a percutaneous IR drainage as above 40 mm this can be a consideration We will see how patient improves with antibiotics and move forward from there Unsure if patient has component of diverticulosis, however will require further workup and imaging later On CBC she did have slight leukocytosis 13.3, also neutrophils appear to be elevated She is young considering getting diverticulitis Patient had SIRS 3 out of 4 with temperature, tachycardia tachycardia and tachypnea Will consider surgical consult tomorrow if patient continues to be in pain and continues to be spiking fevers Blood cultures still pending Patient is still passing gas Plan: ? Flagyl 500 mg IV every 8 hours ? Ciprofloxacin IV 500 mg every 12 hours ? Clear liquid ? Antiemetics as needed ? Pain management in patient states cluding morphine 2 mg every 3 hours and Percocet every 6 hours ? Follow-up blood cultures #Morbid obesity BMI of 48 A1c 5.3, TSH 3, LDL 65, total cholesterol 118 Plan: ? Outpatient management considering GLP's and other weight loss medicines ? Cardiac stratification #Dysmenorrhea Plan: ? Outpatient follow-up ? Holding home Provera #Health Maintenance Disposition: MedSurg DVT prophylaxis: SCDs GI prophylaxis: Protonix Diet: Clear liquid CODE STATUS: Full Patient seen and care discussed with my attending physician, Dr. Eladio Pritchett, PGY-1 Attending Provider Attestation/Addendum I have examined the patient, reviewed labs and imaging findings, discussed the case with the resident(s), and reviewed entered orders. I agree with the plan of care as outlined in this note, with these additional summaries/recommendations: Patient seen at bedside. Overnight sepsis alert was called for patient. No evidence of end organ damage and sepsis ruled out. Patient nor afebrile. She continues to endorse abdominal pain. In the emergency department patient underwent CT of abdomen pelvis which showed acute sigmoid diverticulitis with suspicious early 33 mm peridiverticular abscess. Continue IV antibiotics. Blood cultures taken and f/u results when available. Continue pain management. Bowel rest. Leukocytosis present and continue to trend hematology panel daily. If patients symptoms worsen or becomes febrile again then we will obtain surgical consultation. Patient is also noted to be morbidly obese and would benefit from outpatient weight loss program/weight loss medications. Repeat hematology and chemistry panel in AM. All questions answered to satisfaction. Please see residents note for additional details of management. Dr. Eladio MD
[2024-11-18] MEDS: CALCIUM CARBONATE 600 MG TABLET PO (13:00)
[2024-11-18 14:23] LABS: Collection Type, Urine Catheter
[2024-11-18 14:36] LABS: Bilirubin,Urine Negative (Negative); Blood,Urine 3+ (Negative); Clarity,Urine Clear (Clear/Hazy); Color,Urine Lt-Yellow (Lt Yel-Yel); Glucose, Urine Negative (Negative); Ketones,Urine 2+ (Negative); Leukocyte Esterase,Urine Negative (Negative); Nitrite,Urine Negative (Negative); PH,Urine 6.5 (5.0-7.0); Protein,Urine Negative (Neg - Trace); RBC,Urine 1 /hpf (0-3); Specific Gravity,Urine 1.016 (1.001-1.035); Squamous Epithelial Cell,Urine 1 /hpf (0-5); Urobilinogen,Urine Negative mg/dL (0.0-1.0); WBC,Urine 2 /hpf (0-5)
[2024-11-18] MEDS: KETOROLAC INJ 30 MG/ML VIAL IVP (16:19)
[2024-11-19] VITALS: BP 98/73; PULSE 90; RESP 19; TEMP 36.8; O2SAT 95
[2024-11-19 04:00] VITALS: BP 124/84; PULSE 77; RESP 19; TEMP 37.2; O2SAT 96
[2024-11-19] MEDS: metroNIDAZOLE/NS 500 MG IVPB 500 MG/100 ML BAG 200 MG IV ×2 (05:18→22:25)
[2024-11-19 06:07] LABS: Basophils % (Auto) 0 % (0-2.5); Eosinophils # (Auto) 0.1 Thou/mm3 (0.0-0.5); Eosinophils % (Auto) 1 % (0-10); Hemoglobin 11.4 g/dL (12.0-16.0); Immature Granulocytes % (Auto) 0 % (0-0); Immature Granulocytes Auto 0.04 Thou/mm3 (0.00-0.00); Lymphocytes # (Auto) 1.9 Thou/mm3 (1.0-4.8); Lymphocytes % (Auto) 17 % (10-50); Mean Corpuscular HGB Conc 34.5 g/dl (31.0-37.0); Mean Corpuscular Hemoglobin 28.1 pg (25.0-35.0); Mean Corpuscular Volume 81 fL (80-100); Monocytes # (Auto) 0.7 Thou/mm3 (0.0-0.8); Monocytes % (Auto) 6 % (0-12); Neutrophils # (Auto) 8.9 Thou/mm3 (1.8-7.7); Neutrophils % (Auto) 76 % (37-80); Nucleated Red Blood Cell % 0 /100 WBC (0); Platelet Count 254 Thou/mm3 (140-440); RDW Standard Deviation 45.1 fL (36.4-46.3); Red Blood Count 4.06 Miln/mm3 (4.00-5.20); White Blood Count 11.6 Thou/mm3 (3.6-11.0)
[2024-11-19 06:25] LABS: Alanine Aminotransferase 14 U/L (10-49); Albumin/Globulin Ratio 1.4 (1.2-2.2); Alkaline Phosphatase 84 U/L (46-116); Anion Gap 12 (7-16); Aspartate Amino Transferase 14 U/L (0-34); BUN/Creatinine Ratio 12 Ratio (12-20); Bilirubin,Total 0.6 mg/dL (0.3-1.2); Blood Urea Nitrogen 6 mg/dL (9-23); Calcium 8.7 mg/dL (8.3-10.6); Calcium (Corrected) 8.7 mg/dL (8.5-10.1); Carbon Dioxide 23.5 mMol/L (20.0-31.0); Chloride 105 mMol/L (98-107); Creatinine (Component) 0.5 mg/dL (0.6-1.3); Estimated Creatinine Clearance 181.6 mL/min (>60); Globulin 2.9 gm/dL (2.3-3.5); Glucose 92 mg/dL (74-106); Osmolality,Calculated 277 (275-295); Potassium 3.5 mMol/L (3.4-5.1); Sodium 140 mMol/L (136-145); Total Protein 6.9 gm/dL (5.7-8.2); eGFR > 60 See Note
[2024-11-19 08:00] VITALS: BP 131/75; PULSE 82; RESP 19; TEMP 37; O2SAT 96
[2024-11-19] MEDS: CIPROFLOXACIN/D5w 400 MG IVPB 400 MG/200 ML BAG 200 MG IV ×2 (08:25→21:08)
[2024-11-19] MEDS: PANTOPRAZOLE INJ 40 MG VIAL IVP (08:25)
--- NOTE | 2024-11-19 09:35 | PC.SS ---
Follow up note: On IV antibiotic. Pt will return home upon dc.
[2024-11-19 12:00] VITALS: BP 117/77; PULSE 76; RESP 17; TEMP 37.2; O2SAT 95
[2024-11-19 16:00] VITALS: BP 136/81; PULSE 80; RESP 18; TEMP 37.2; O2SAT 97
--- NOTE | 2024-11-19 18:54 | PD.RESPRO ---
Documentation for date of: 11/19/24 Subjective Subjective Interval history: Patient examined at bedside today. No acute overnight events. Patient reports she is feeling much better, is having minimal abdominal pain. She reports she has not used any pain medicines overnight. She also says she has not spiked a fever either. She is wondering when she is in go home. No other complaints at this time. Exam Vital Signs Temp Pulse Resp BP Pulse Ox O2 Del Method 99.0 F 80 18 136/81 H 97 Room Air 11/19/24 16:00 11/19/24 16:00 11/19/24 16:00 11/19/24 16:00 11/19/24 16:00 11/19/24 16:00 Narrative Exam General: AAOx3, NAD, morbidly obese, pleasant female HEENT: Dry mucous membranes, conjunctiva clear, EOMI, PERRLA, Cardiovascular: S1, S2, radial pulses +2 bilat, RRR Pulmonary: CTAB bilat no cough, no wheezing GI: Minimal tenderness palpitation mainly in the left lower quadrant, no guarding, rigidity, rebound tenderness or distension Extremities: No presence of trace or pitting edema in lower extremities bilaterally, dorsalis pedis pulses +2 bilaterally Neuro: AAOx3, no focal motor or sensory deficits in the UE or LE bilat Psych: Good judgement, thought and behavior. Cooperative Objective Labs 11/20/24 05:02 11/20/24 05:02 Labs: Laboratory Results - last 24 hr 11/19/24 05:15 WBC 11.6 H RBC 4.06 Hgb 11.4 L Hct 33.0 L MCV 81 MCH 28.1 MCHC 34.5 RDW Std Deviation 45.1 Plt Count 254 D Neut % (Auto) 76 Lymph % (Auto) 17 [place] % (Auto) 6 Eos % (Auto) 1 Baso % (Auto) 0 Neut # (Auto) 8.9 H Lymph # (Auto) 1.9 [place] # (Auto) 0.7 Eos # (Auto) 0.1 Baso # (Auto) 0.0 Immature Gran # (Auto) 0.04 H Absolute Nucleated RBC 0.00 Immature Gran % 0 Nucleated RBC % 0 Sodium 140 Potassium 3.5 Chloride 105 Carbon Dioxide 23.5 Anion Gap 12 BUN 6 L Creatinine 0.5 L Estim Creat Clear Calc 181.6 eGFR > 60 BUN/Creatinine Ratio 12 Glucose 92 Calculated Osmolality 277 Calcium 8.7 Corrected Calcium 8.7 Magnesium 2.0 Total Bilirubin 0.6 AST 14 ALT 14 Alkaline Phosphatase 84 Total Protein 6.9 Albumin 4.0 Globulin 2.9 Albumin/Globulin Ratio 1.4 Quality Measures Quality Measures none Assessment & Plan Assessment Current Active Medications: Generic Name Dose Route Start Last Admin Trade Name Freq PRN Reason Stop Dose Admin Acetaminophen 650 mg 11/17/24 19:42 Acetaminophen 325 Mg Tablet PO 12/17/24 19:41 Q6H PRN Fever >100 or pain 1-3 Metronidazole 500 mg in 100 mls @ 200 mls/hr 11/18/24 00:00 11/19/24 05:18 Flagyl 500 Mg Iv IV 11/25/24 00:00 200 mls/hr Q8HR LYUDMILA Administration Ciprofloxacin/Dextrose 400 mg in 200 mls @ 200 mls/hr 11/18/24 00:47 11/19/24 08:25 Cipro Ivpb IV 11/25/24 00:46 200 mls/hr Q12HR LYUDMILA Administration Lactated Ringer's 1,000 mls @ 100 mls/hr 11/17/24 20:00 11/17/24 20:04 Lactated Ringers IV 12/17/24 19:59 100 mls/hr .Q10H LYUDMILA Administration Morphine Sulfate 2 mg 11/17/24 19:48 11/18/24 13:03 Morphine Sulf Inj 10 Mg/Ml Vial IVP 11/22/24 19:47 2 mg Q3H PRN Administration PAIN SCALE 7-10 (Severe Ondansetron HCl 4 mg 11/17/24 19:42 Ondansetron Inj 2 Mg/Ml Inj 2 Ml IV 12/17/24 19:41 Q6H PRN NAUSEA OR VOMITING Protocol Oxycodone/Acetaminophen 1 tab 11/17/24 19:48 11/18/24 05:47 Oxycodone/Apap 5/325 Tablet PO 11/22/24 19:47 1 tab Q6H PRN Administration PAIN SCALE 4-6 (Moderate Pantoprazole Sodium 40 mg 11/18/24 09:00 11/19/24 08:25 Pantoprazole Inj 40 Mg Vial IVP 12/18/24 08:59 40 mg QDAY LYUDMILA Administration Plan Assessment Brian is a 24 y/o female with PMHx morbid obesity, dysmenorrhea who was admitted for acute diverticulitis with associated 33 mm peridiverticular abscess. #Acute diverticulitis #Peridiverticular abscess, 33 mm #SIRS 3/[address] abdomen pelvis shows sigmoid diverticulitis with associated early 33 mm peridiverticular abscess Considering size of abscess which is 33 mm, we will hold on getting a surgical consult or even doing a percutaneous IR drainage as above 40 mm this can be a consideration We will see how patient improves with antibiotics and move forward from there Unsure if patient has component of diverticulosis, however will require further workup and imaging later On CBC she did have slight leukocytosis 13.3, also neutrophils appear to be elevated She is young considering getting diverticulitis Patient had SIRS 3 out of 4 with temperature, tachycardia tachycardia and tachypnea Blood cultures no growth after one day Patient is improving with abdominal pain, leukocytosis is coming down, patient has not used pain medicines either and patient has not spiked a fever overnight, will hold off on surgical consult Will continue with IV antibiotics and advance diet and to see how patient improves Plan: ? Flagyl 500 mg IV every 8 hours (11/17- ? Ciprofloxacin IV 500 mg every 12 hours (11/17- ? Full Liquid Diet ? Antiemetics as needed ? Pain management in patient states cluding morphine 2 mg every 3 hours and Percocet every 6 hours ? Follow-up blood cultures #Morbid obesity BMI of 48 A1c 5.3, TSH 3, LDL 65, total cholesterol 118 Plan: ? Outpatient management considering GLP's and other weight loss medicines #Dysmenorrhea Plan: ? Outpatient follow-up ? Holding home Provera #Health Maintenance Disposition: MedSurg DVT prophylaxis: SCDs GI prophylaxis: Protonix Diet: Full liquid CODE STATUS: Full Patient seen and care discussed with my attending physician, Dr. Eladio Pritchett, PGY-1 Attending Provider Attestation/Addendum I have examined the patient, reviewed labs and imaging findings, discussed the case with the resident(s), and reviewed entered orders. I agree with the plan of care as outlined in this note, with these additional summaries/recommendations: Patient seen at bedside. No acute overnight events. Patient reports improvement in abdominal pain. In the emergency department patient underwent CT of abdomen pelvis which showed acute sigmoid diverticulitis with suspicious early 33 mm peridiverticular abscess. Continue IV antibiotics. Blood cultures show no growth at 24 hours. Continue pain management. Bowel rest & advance diet to full liquid. Leukocytosis present and continue to trend hematology panel daily. If patients symptoms worsen or becomes febrile again then we will obtain surgical consultation. Patient is also noted to be morbidly obese and would benefit from outpatient weight loss program/weight loss medications. Repeat hematology and chemistry panel in AM. All questions answered to satisfaction. Please see residents note for additional details of management. Dr. Eladio MD
[2024-11-19 20:00] VITALS: BP 113/77; PULSE 92; RESP 18; TEMP 37.2; O2SAT 96
[2024-11-20] VITALS: BP 146/74; PULSE 77; RESP 18; TEMP 36.9; O2SAT 98
[2024-11-20 04:00] VITALS: BP 128/92; PULSE 76; RESP 18; TEMP 36.8; O2SAT 97
[2024-11-20] MEDS: metroNIDAZOLE/NS 500 MG IVPB 500 MG/100 ML BAG 200 MG IV (05:41)
[2024-11-20 06:26] LABS: Basophils % (Auto) 0 % (0-2.5); Eosinophils # (Auto) 0.2 Thou/mm3 (0.0-0.5); Eosinophils % (Auto) 2 % (0-10); Hematocrit 36.1 % (36.0-46.0); Hemoglobin 12.1 g/dL (12.0-16.0); Immature Granulocytes % (Auto) 0 % (0-0); Immature Granulocytes Auto 0.03 Thou/mm3 (0.00-0.00); Lymphocytes # (Auto) 1.8 Thou/mm3 (1.0-4.8); Lymphocytes % (Auto) 21 % (10-50); Mean Corpuscular HGB Conc 33.5 g/dl (31.0-37.0); Mean Corpuscular Hemoglobin 28.3 pg (25.0-35.0); Mean Corpuscular Volume 85 fL (80-100); Monocytes # (Auto) 0.5 Thou/mm3 (0.0-0.8); Monocytes % (Auto) 6 % (0-12); Neutrophils # (Auto) 6.1 Thou/mm3 (1.8-7.7); Neutrophils % (Auto) 71 % (37-80); Nucleated Red Blood Cell % 0 /100 WBC (0); Platelet Count 287 Thou/mm3 (140-440); RDW Standard Deviation 45.8 fL (36.4-46.3); Red Blood Count 4.27 Miln/mm3 (4.00-5.20); White Blood Count 8.6 Thou/mm3 (3.6-11.0)
[2024-11-20 07:00] LABS: Alanine Aminotransferase 15 U/L (10-49); Albumin, Serum 4.2 gm/dL (3.5-5.0); Albumin/Globulin Ratio 1.4 (1.2-2.2); Alkaline Phosphatase 82 U/L (46-116); Anion Gap 11 (7-16); Aspartate Amino Transferase 19 U/L (0-34); BUN/Creatinine Ratio 12 Ratio (12-20); Bilirubin,Total 0.4 mg/dL (0.3-1.2); Blood Urea Nitrogen 7 mg/dL (9-23); Calcium 8.7 mg/dL (8.3-10.6); Calcium (Corrected) 8.7 mg/dL (8.5-10.1); Chloride 104 mMol/L (98-107); Creatinine (Component) 0.6 mg/dL (0.6-1.3); Estimated Creatinine Clearance 151.3 mL/min (>60); Globulin 2.9 gm/dL (2.3-3.5); Glucose 101 mg/dL (74-106); Magnesium 2.2 mg/dL (1.6-2.6); Osmolality,Calculated 277 (275-295); Potassium 3.7 mMol/L (3.4-5.1); Sodium 140 mMol/L (136-145); Total Protein 7.1 gm/dL (5.7-8.2); eGFR > 60 See Note
[2024-11-20 08:00] VITALS: BP 141/88; PULSE 84; RESP 18; TEMP 36.4; O2SAT 97
[2024-11-20] MEDS: CIPROFLOXACIN/D5w 400 MG IVPB 400 MG/200 ML BAG 200 MG IV (08:02)
[2024-11-20] MEDS: PANTOPRAZOLE INJ 40 MG VIAL IVP (08:03)
--- NOTE | 2024-11-20 10:40 | CHAP ---
Patient was visited by a [facility] Spiritual Care Volunteer on 11/18/2024 between 0900 and 1200 and received comfort, encouragement and/or prayer.
[2024-11-20 12:00] VITALS: BP 127/89; PULSE 77; RESP 17; TEMP 36.6; O2SAT 97
--- NOTE | 2024-11-20 19:38 | PD.RESDS ---
Planned Discharge Date 11/20/24 DS: Providers Provider Date of admission: 11/17/24 17:15 Primary care physician: Physician No Primary/Family Admitting Provider: Marcos Hendricks MD Attending Provider on Admission: Marlin Pollack MD Attending Provider on DC: Susan Abernathy MD Discharging Provider: Susan Abernathy MD DS: Diagnosis Problem List Completed Was Problem List Reviewed/Reconciled?: Yes Hospital Course Hospital Course Hospital course: A 24-year-old female patient with no past medical history except for morbid obesity, dysmenorrhea, came to the hospital due to acute abdominal pain in the lower quadrants started 3 days before admission. She reported the pain associated nausea however there was no vomiting. Patient tried to work however she was unable to tolerate the pain for that reason she came to the ED. At the ED patient was found to have leukocytosis, CT scan showed acute diverticulitis with small diverticular abscess of 3 cm associated with mycosis. Patient was admitted for IV fluid hydration and was started on Flagyl and ciprofloxacin with bowel rest. 1 day after admission patient developed sepsis and was she was given IV fluids and morphine. Her symptoms resolved and her lactate and Pro-Nicanor at that time were negative. Her blood cultures and urine cultures were also negative. Patient after that reported significant improvement, continue to improve. For the past 2 days patient has been having meals started with clear liquid and advance to regular diet and was tolerated well. Patient today seems to be clinically stable for discharge Admission diagnosis #Sepsis secondary to diverticulitis #Acute diverticulitis #Small peridiverticular abscess #History of morbid obesity #History dysmenorrhea - Patient's plan and care discussed with my attending, Dr. Tarik Abernathy MD Internal Medicine PGY-2 Time Spent with Patient Time attestation: Total time spent providing and/or coordinating discharge services: Time spent: Less than 30 minutes Exam Vital Signs Temp Pulse Resp BP Pulse Ox O2 Del Method 97.9 F 77 17 127/89 H 97 Room Air 11/20/24 12:00 11/20/24 12:00 11/20/24 12:00 11/20/24 12:00 11/20/24 12:00 11/20/24 12:00 Narrative Exam GEN: AOx3, able to speak full sentences HEENT: NC/AC, PERRLA, oral mucosa moist, neck supple CVS: RRR, S1-S2 present, no murmurs appreciated RESP: CTAB GI: soft,non distended, non tender, NBS MSK: able to move all 4 limbs, no lower extremity edema SKIN: warm and dry DATABASE ADMINISTRATION ASSOCIATE: CN II-XII and Sensation grossly intact. Discharge Plan Plan Patient Disposition: HOME (Self Care) Patient condition on transfer: Stable Care Plan Goals: Follow up with your primary care provider within one week from discharge Complete your antibiotics ciprofloxacin and metronidazole for 7 more days Increase your fiber intake with meals and avoid constipation In case of worsening of your symptoms please return to the ED as soon as possible Use medications as prescribed Prescriptions/Referrals Prescriptions/Med Rec: New metronidazole 500 mg tablet 500 mg PO Q8H 10 Days Qty: 30 0RF ciprofloxacin HCl 500 mg tablet 500 mg PO BID 7 Days Qty: 14 0RF acetaminophen 325 mg Tablet 325 mg PO Q6H PRN (Reason: Fever >100 or pain 1-3) 7 Days Qty: 20 0RF Discontinued acetaminophen-codeine [Tylenol-Codeine #3] 300-30 mg tablet 1 tab PO Q6H PRN (Reason: pain) Qty: 20 0RF hydrocodone-acetaminophen [[place]] 5-325 mg tablet 1 tab PO Q6H MDD 1 tab every 6 hrs PRN (Reason: pain) Qty: 20 0RF ibuprofen 600 mg tablet 600 mg PO Q6H Qty: 20 0RF Referrals: No Primary/Family,Physician [Primary Care Provider] - Patient/Caregiver Discharge Instructions Print Language: [place] Stand Alone Forms: Annette Award Info., Patient Portal Info Letter Discharge Order Discharge Orders: Discharge (Routine); Ordered 11/20/24 Ordered By: Susan Abernathy Quality Discharge Quality Measures none MD Attestestation MD Attestation I attest that I was physically present for the evaluation, physical examination, lab and imaging review of the patient with the residents. I discussed the case with the residents and agree with the findings and plans of care as documented above. Marlin Pollack MD
== END 2024-11-20 13:49 | disposition home or self-care (01) | DRG 720 ==
LOC: SERX 09:00 → SERHOLD 18:31 → S3NX 19:27
PROVIDERS: Nurse Practitioner Family; Student in an Organized Health Care Education/Training Program; Admitting Provider Student in an Organized Health Care Education/Training Program; Emergency Provider Emergency Medicine; Visit Provider Student in an Organized Health Care Education/Training Program
DX: A41.9 Sepsis, unspecified organism (principal); K57.20 Diverticulitis of large intestine with perforation and abscess without bleeding; E66.01 Morbid (severe) obesity due to excess calories; Z68.42 Body mass index [BMI] 45.0-49.9, adult; N94.6 Dysmenorrhea, unspecified
CPT/HCPCS: 36415; 74177; 80053; 80061; 81001; 81025; 83036; 83605; 83690; 83735; 84100; 84145; 84443; 84703; 85025; 85610; 85730; 87040; 96365; 96366; 96374; 99285; A4649; J0131; J0744; J1171; J1885; J2270; J2405; J2470; J3490; J7030; J7120; Q9967; A9270; J1836